=== PATIENT | female | born 1990 | race Caucasian/White ===

== ENCOUNTER 2024-05-23 08:36 | Emergency (ER) | payer SELFPAY ==
--- NOTE | ~2024-05-23 | XR_ITS ---
EXAMINATION: XR chest 2V DATE: 05/23/2024 09:01 INDICATION: Intermittent anterior chest pain. TECHNIQUE: Frontal and lateral views of the chest were obtained. COMPARISON: None. FINDINGS: There is no pneumonia, pleural effusion, or pneumothorax. The heart size is normal. IMPRESSION: 1. No acute cardiopulmonary disease. Reviewed, dictated and finalized at location A. [facility]
--- NOTE | 2024-05-23 08:37 | ECG_ITS ---
Test Date: 2024-05-23 08:42:10 Measurements Intervals [place] Rate: 81 P: 59 GA: 146 QRS: 27 QRSD: 89 T: 27 QT: 372 QTc: 432 Interpretive Statements SINUS RHYTHM No previous ECG available for comparison Electronically Signed On 05-23-2024 15:22:07 CHIROPRACTIC ASSISTANT by Kwadwo Marley M.D.
[2024-05-23 08:40] VITALS: BP 158/87; PULSE 96; RESP 16; TEMP 36.7; O2SAT 98
[2024-05-23 08:44] VITALS: BP 158/87; PULSE 79; RESP 13; O2SAT 98
[2024-05-23] MEDS: ASPIRIN 81 MG CHEWABLE TABLET 324 MG PO (08:44)
[2024-05-23 08:47] VITALS: PULSE 83; O2SAT 99
--- NOTE | 2024-05-23 08:53 | PC.NURSE ---
Pt reports chest pain intermittent for 1 month, worse at HS. Denies N/V, shortness of breath.
[2024-05-23 08:54] LABS: Basophils Absolute Auto 0.1 K/mm3 (0.0-0.1); Basophils Percent Auto 0.8 % (0.2-1.2); Eosinophils Absolute Auto 0.3 K/mm3 (0-0.3); Eosinophils Percent Auto 3.1 % (0-4.4); Hematocrit 41.5 % (37.0-47.0); Hemoglobin 13.8 g/dL (12.0-15.0); Immature Granulocyte Absolute 0.01 K/mm3 (0.00-0.031); Immature Granulocyte Percent A 0.1 % (0-0.5); Lymphocytes Absolute Auto 3.11 K/mm3 (0.9-3.2); Lymphocytes Percent Auto 34.4 % (18.3-44.2); Mean Corpuscular HGB Conc 33.3 g/dl (32-36); Mean Corpuscular Hemoglobin 30.9 pg (26-34); Mean Corpuscular Volume 92.8 fl (80-100); Mean Platelet Volume 10.6 fl (7.4-10.4); Monocytes Absolute Auto 0.8 K/mm3 (0.1-0.6); Monocytes Percent Auto 8.4 % (2.6-8.5); Neutrophils Absolute Auto 4.8 K/mm3 (1.3-6.7); Neutrophils Percent Auto 53.2 % (45.5-73.1); Platelet Count Result 272 k/mm3 (150-375); Red Blood Count 4.47 M/mm3 (4.2-5.4); Red Cell Distribution Width 13.2 % (11.5-14.5); White Blood Count 9.1 K/mm3 (4.5-10.0)
--- NOTE | 2024-05-23 09:05 | ED_ITS ---
HPI - Chest Pain General Chief Complaint: Chest Pain Stated Complaint: pain in my chest Time Seen by Provider: 05/23/24 08:59 Source: patient Mode of arrival: ambulatory Limitations: no limitations History of Present Illness HPI narrative: 33 YEARS OLD FEMALE CAME TO THE ED WITH INTERMITTENT CENTRAL CHEST SQUEEZING FEELING OVER 1 MONTH, INTERMITTENT, NO RADIATION, NO TRIGGERING OR RELIEVING FACTORS, USUALLY LAST FOR MAXIMUM 5 SECONDS EACH TIME WHEN IT COMES. PATIENT NOTICED THE CHEST PAIN MORE NIGHT WHILE IN BED. SHE DENIES ANY FEVER, CHILLS, NAUSEA, VOMITING, SHORTNESS OF BREATH, BACK PAIN OR RADIATION OF PAIN. HISTORY OF ANXIETY AND DEPRESSION STARTED ON ANTI DEPRESSION MEDICATION RECENTLY. SHE VAPES, DRINK ALCOHOL OCCASIONALLY, MARIJUANA OCCASIONALLY. NO FAMILY HISTORY OF CORONARY ARTERY DISEASE. CURRENTLY PATIENT IS ASYMPTOMATIC NO CHEST PAIN Related Data Allergies Allergy/AdvReac Type Severity Reaction Status Date / Time Sulfa (Sulfonamide Allergy Intermediate HIVES/RASH/ Verified 05/23/24 08:36 Antibiotics) UNKNOWN Review of Systems 2 Review of Systems: All systems reviewed & are unremarkable except as noted in HPI and below Exam 2 Narrative: GENERAL APPEARANCE: WELL-DEVELOPED, WELL-NOURISHED SKIN: NORMAL COLOR HEAD: NORMOCEPHALIC, NONTRAUMATIC EYES: CLEAR CONJUNCTIVA ENT: OROPHARYNX NORMAL, EARS NORMAL, NOSE NORMAL NECK: SUPPLE, NONTENDER CHEST AND RESPIRATORY: AIRWAY PATENT, NO RESPIRATORY DISTRESS, NO ACCESSORY MUSCLE USE HEART: REGULAR RATE/RHYTHM ABDOMEN: SOFT, NONTENDER, NO ORGANOMEGALY, QUIET BOWEL SOUNDS MUSCULOSKELETAL: NORMAL RANGE OF MOTION, NONTENDER BACK NEUROLOGIC: ALERT AND ORIENTED ?3, COMMODITY MANAGER IS NORMAL TESTED, NO GROSS MOTOR DEFICIT Course Vital Signs Vital signs: Vital Signs Temperature 36.7 C 05/23/24 08:40 Pulse Rate 96 05/23/24 08:40 Respiratory Rate 16 05/23/24 08:40 Blood Pressure 158/87 H 05/23/24 08:40 Pulse Oximetry 98 05/23/24 08:40 Oxygen Delivery Room Air 05/23/24 08:40 Temperature 36.8 C 05/23/24 09:56 Pulse Rate 64 05/23/24 09:56 Respiratory Rate 14 05/23/24 09:56 Blood Pressure 131/71 05/23/24 09:56 Pulse Oximetry 97 05/23/24 09:56 Oxygen Delivery Room Air 05/23/24 08:47 MDM - Chest Pain MDM Narrative Medical decision making narrative: PATIENT PRESENTS WITH CHEST PAIN VITAL SIGNS SHOWING BLOOD PRESSURE 158/87 ON ARRIVAL, OTHERWISE INSIGNIFICANT PHYSICAL EXAMINATION IS INSIGNIFICANT DIFFERENTIAL DIAGNOSIS ANXIETY, DEPRESSION RELATED SYMPTOMS, CHEST WALL PAIN, LESS LIKELY CORONARY ARTERY DISEASE BLOOD WORKUP TODAY INCLUDES CBC, CMP, TROPONIN SHOWED NO ACUTE ABNORMALITIES CHEST X-RAY SHOWED NO ACUTE ABNORMALITIES EKG ON ARRIVAL SHOWED NORMAL SINUS RHYTHM AT 81 BEATS PER MINUTE, NO PREVIOUS EKG AVAILABLE FOR COMPARISON HEART SCORE IS 1 CHEST PAIN HIGH LIKELY SECONDARY TO ANXIETY/STRESS WHICH USUALLY COMES MORE NIGHT THAT AT ANY TIME OF THE DAY. DISCHARGE, FOLLOW UP WITH FAMILY PHYSICIAN FOR ANTIDEPRESSION MEDICATION ADJUSTMENT Differential Diagnosis Differential diagnosis: Likely other ( ABOVE) Medical Records Data Attestation: I reviewed the patient's medical records. Lab Data Attestation: I reviewed the patient's lab results. 05/23/24 08:47 05/23/24 09:04 Labs: Lab Results 05/23/24 05/23/24 Range/Units 08:47 09:04 WBC 9.1 (4.5-10.0) K/mm3 RBC 4.47 (4.2-5.4) M/mm3 Hgb 13.8 (12.0-15.0) g/dL Hct 41.5 (37.0-47.0) % MCV 92.8 (80-100) fl MCH 30.9 (26-34) pg MCHC 33.3 (32-36) g/dl RDW 13.2 (11.5-14.5) % Plt Count 272 (150-375) k/mm3 MPV 10.6 H (7.4-10.4) fl Immature Gran % (Auto) 0.1 (0-0.5) % Neut % (Auto) 53.2 (45.5-73.1) % Lymph % (Auto) 34.4 (18.3-44.2) % [place] % (Auto) 8.4 (2.6-8.5) % Eos % (Auto) 3.1 (0-4.4) % Baso % (Auto) 0.8 (0.2-1.2) % Lymph # (Auto) 3.11 (0.9-3.2) K/mm3 [place] # (Auto) 0.8 H (0.1-0.6) K/mm3 Eos # (Auto) 0.3 (0-0.3) K/mm3 Baso # (Auto) 0.1 (0.0-0.1) K/mm3 Abs Immat Gran (auto) 0.01 (0.00-0.031) K/mm3 Absolute Neuts (auto) 4.8 (1.3-6.7) K/mm3 Absolute Nucleated RBC 0.000 (0.0-0.012) K/mm3 Nucleated RBC % 0.0 (0.0-0.2) % PT 12.3 (11.1-14.7) Seconds INR 0.9 APTT 29.0 (22.3-36.8) Seconds Sodium 138 (137-145) mmol/L Potassium 4.3 (3.4-5.0) mmol/L Chloride 106 (98-107) mmol/L Carbon Dioxide 25 (22-30) mmol/L Anion Gap 7 (4-12) mmol/L BUN 13 (7-17) mg/dL Creatinine 0.53 L (0.7-1.0) mg/dL Estim Creat Clear Calc 159 ml/min Estimated GFR > 60 (59 - ) Glucose 100 (65-110) mg/dL Calcium 8.5 (8.4-10.2) mg/dL Total Bilirubin 0.3 (0.2-1.3) mg/dL AST 23 (14-36) U/L ALT 20 (6-35) U/L Alkaline Phosphatase 76 (38-126) U/L Troponin I < 0.012 (0.000-0.034) ng/mL Total Protein 7.0 (6.3-8.2) g/dL Albumin 4.1 (3.5-5.1) g/dL Lipase 280 (23-300) U/L Imaging Data Radiologist's impression: Impressions Chest X-Ray 05/23/24 09:01 IMPRESSION: 1. No acute cardiopulmonary disease. ECG Data EKG #1: Attestation: I personally reviewed and interpreted this ECG as follows: ECG completion date: 05/23/24 Pacemaker model: NORMAL SINUS RHYTHM, NO PREVIOUS EKG AVAILABLE FOR COMPARISON Critical Care Time Critical Care Time Critical Care Time: No Discharge Plan Discharge Clinical Impression: Atypical chest pain Patient Disposition: Home, Self-Care Condition: Stable Instructions: Chest Pain (ED) Additional Instructions: RETURN IF SYMPTOMS ARE WORSENING , CALL YOUR FAMILY PHYSICIAN FOR APPOINTMENT, TAKE TYLENOL NEEDED FOR ACHES AND PAIN, CONTINUE HOME MEDICATIONS. Patient Language: Frisian Follow-up/Referrals: PHYSICIAN,PAINT FORMULATOR [Non-Staff] - James Butler MD [Physician] - 05/26/24 Quality HEART score for chest pain patients History: slightly suspicious ECG: normal Age: < or = to 45 years Risk factors: 1 or 2 risk factors Troponin: < or = to 1x normal limit Heart score: 1
[2024-05-23 09:08] LABS: INR 0.9; Prothrombin Time 12.3 Seconds (11.1-14.7)
[2024-05-23 09:28] LABS: Alanine Aminotransferase 20 U/L (6-35); Albumin Level 4.1 g/dL (3.5-5.1); Alkaline Phosphatase 76 U/L (38-126); Anion Gap 7 mmol/L (4-12); Aspartate Amino Transferase 23 U/L (14-36); Bilirubin,Total 0.3 mg/dL (0.2-1.3); Blood Urea Nitrogen 13 mg/dL (7-17); Calcium 8.5 mg/dL (8.4-10.2); Carbon Dioxide 25 mmol/L (22-30); Chloride 106 mmol/L (98-107); Estimated CRCL calculation 159 ml/min; Estimated Glomerular Filt Rate > 60; Glucose 100 mg/dL (65-110); Lipase 280 U/L (23-300); Potassium 4.3 mmol/L (3.4-5.0); Sodium 138 mmol/L (137-145)
[2024-05-23 09:38] LABS: Troponin I < 0.012 ng/mL (0.000-0.034)
[2024-05-23 09:56] VITALS: BP 131/71; PULSE 64; RESP 14; TEMP 36.8; O2SAT 97
--- NOTE | 2024-05-23 10:01 | PC.NURSE ---
Pt denies any change in chest pain. Resting while looking at phone
[2024-05-23 10:34] VITALS: BP 130/76; PULSE 68; RESP 18; TEMP 36.7; O2SAT 96
== END 2024-05-23 10:34 | disposition home or self-care (01) ==
PROVIDERS: Emergency Provider Emergency Medicine
DX: R07.89 Other chest pain (principal); F41.9 Anxiety disorder, unspecified; F32.A Depression, unspecified
CPT/HCPCS: 36415; 71046; 80053; 83690; 84484; 85025; 85610; 85730; 93005; 99284; A9270